=== PATIENT | female | born 1980 | race Caucasian/White ===

== ENCOUNTER → 2017-04-26 | Outpatient (CLI) | payer OTHER ==
[~2017-04-26] MED LIST: None per pt
[2017-04-26 15:24] LABS: HEMATOCRIT 32.8 % (34.6-47.8); HEMOGLOBIN 10.3 g/dL (11.7-16.4); WHITE BLOOD COUNT 6.6 x10^3/uL (3.4-10)
== END | disposition home or self-care (01) ==
LOC: STAR 14:26
PROVIDERS: ATTEND Obstetrics & Gynecology
DX: Z01.818 Encounter for other preprocedural examination (principal); N83.202 Unspecified ovarian cyst, left side; N85.8 Other specified noninflammatory disorders of uterus
CPT/HCPCS: 36415; 81003; 84702; 85025

== ENCOUNTER → 2018-08-06 | Outpatient (CLI) | payer OTHER | END | disposition home or self-care (01) | LOC: CFH 12:56 | PROVIDERS: ATTEND Nurse Practitioner Family | DX: S83.8X2A Sprain of other specified parts of left knee, initial encounter (principal); M25.462 Effusion, left knee; X58.XXXA Exposure to other specified factors, initial encounter; Y93.89 Activity, other specified; Y92.89 Other specified places as the place of occurrence of the external cause; Y99.8 Other external cause status ==

== ENCOUNTER 2018-08-14 09:53 | Day surgery (SDC) | payer OTHER ==
[~2018-08-14] VITALS: Ht 171.4 cm; Wt 65.2 kg
[~2018-08-14 09:53] MED LIST changes: +SUMA25TA3 PO
[2018-08-14 10:25] VITALS: BP 109/73
[2018-08-14] MEDS ORDERED: LACTATED RINGERS 1,000 ML IV SCH (10:28)
[2018-08-14] MEDS ORDERED: ACETAMINOPHEN 500 MG TABLET PO ONE (10:30)
[2018-08-14] MEDS ORDERED: GABAPENTIN 300 MG CAPSULE PO ONE (10:30)
[2018-08-14] MEDS ORDERED: DIAZEPAM 5 MG TABLET PO ONE (10:30)
[2018-08-14] MEDS ORDERED: SCOPOLAMINE PATCH, 1.5MG PATCH.TD72 TD ONE (10:30)
[2018-08-14] MEDS ORDERED: ONDANSETRON ODT 8 MG PO ONE (10:30)
[2018-08-14] MEDS ORDERED: MIDAZOLAM 1 MG/ML, 2ML ONE (10:36)
[2018-08-14] MEDS ORDERED: FENTANYL PF 250 MCG/5ML ONE (10:36)
[2018-08-14] MEDS ORDERED: BUPIVACAINE/PF 0.5% ONE (10:37)
[2018-08-14] MEDS ORDERED: LIDOCAINE 1%-EPI 1:100K, 30ML ONE (10:45)
[2018-08-14] MEDS ORDERED: ROPIvacaine/PF 0.5%, 30 ML ONE (10:45)
[2018-08-14] MEDS ORDERED: LIDOCAINE 2%, 6 ML JEL.PF.APP MM ONE (10:52)
[2018-08-14 10:57] LABS: HCG UR SG 1.024 (1.003-1.030)
[2018-08-14] MEDS ORDERED: CEFAZOLIN 1,000 MG ONE (11:27)
[2018-08-14] MEDS ORDERED: DEXAMETHASONE 4 MG/ML, 1ML ONE (11:27)
[2018-08-14] MEDS ORDERED: PROPOFOL 10 MG/ML, 20ML ONE (11:27)
[2018-08-14] MEDS ORDERED: KETOROLAC 30 MG/1 ML ONE (11:27)
[2018-08-14] MEDS ORDERED: PROMETHAZINE 25 MG/ML, 1ML IV PRN (12:30)
[2018-08-14] MEDS ORDERED: MIDAZOLAM 1 MG/ML, 2ML IV PRN (12:30)
[2018-08-14] MEDS ORDERED: ONDANSETRON 2MG/ML, 2ML IV PRN (12:30)
[2018-08-14] MEDS ORDERED: ALBUTEROL/IPRATROPIUM 2.5MG/0.5MG, 3 ML NPPB PRN (12:30)
[2018-08-14] MEDS ORDERED: hydrALAzine 20 MG/ML, 1ML IV PRN (12:30)
[2018-08-14] MEDS ORDERED: OXYcodone 5 MG/5 ML ORAL.SOL UDC PO PRN (12:30)
[2018-08-14] MEDS ORDERED: MEPERIDINE/PF 25MG/0.5ML IVPush PRN (12:30)
[2018-08-14] MEDS ORDERED: HYDROmorphone 2 MG/ML, 1ML IVPush PRN (12:30)
[2018-08-14] MEDS ORDERED: FENTANYL PF 100 MCG/2ML ONE (13:01)
[2018-08-14] MEDS ORDERED: OXYcodone 5 MG/5 ML ORAL.SOL UDC ONE (13:01)
[2018-08-14] MEDS ORDERED: MEPERIDINE/PF 25MG/ML,1ML ONE (13:01)
[2018-08-14] MEDS: FENTANYL PF 100 MCG/2ML IV PRN ×2 (13:13→13:30)
== END 2018-08-14 15:35 | disposition home or self-care (01) ==
LOC: OUT 09:53
PROVIDERS: ATTEND Orthopaedic Surgery
DX: S83.115A Anterior dislocation of proximal end of tibia, left knee, initial encounter (principal); F41.9 Anxiety disorder, unspecified; X58.XXXA Exposure to other specified factors, initial encounter; Y93.89 Activity, other specified; Y92.89 Other specified places as the place of occurrence of the external cause; Y99.8 Other external cause status
CPT/HCPCS: 29851; 64447; 81025; C1713; C1769; J0690; J1100; J1885; J2175; J2250; J2704; J2795; J3010; J3490; J7120; Q0162

== ENCOUNTER 2020-06-18 16:08 | Emergency (ER) | payer OTHER ==
[2020-06-18] MEDS ORDERED: SODIUM CHLORIDE FLUSH 10ML SYR IVF ONE (18:00)
[2020-06-18 18:19] LABS: ANION GAP 4 mmol/L (5-15); BASOPHILS % (AUTO) 1 % (0-1); CALCIUM 8.6 mg/dL (8.5-10.1); CHLORIDE 110 mmol/L (98-107); CREATININE 0.69 mg/dL (0.55-1.02); EOSINOPHILS % (AUTO) 1 % (1-7); LYMPHOCYTES % (AUTO) 26 % (22-44); MEAN CORPUSCULAR HEMOGLOBIN 25.1 pg (27.0-34.8); MEAN PLATELET VOLUME 8.4 fL (7.4-10.4); MONOCYTES % (AUTO) 7 % (2-9); NEUTROPHILS % (AUTO) 65 % (42-75); PLATELET COUNT 315 x10^3/uL (130-400); RED BLOOD COUNT 4.29 x10^6/uL (3.82-5.3); RED CELL DISTRIBUTION WIDTH 15.8 % (9.6-15.2)
[2020-06-18 18:20] LABS: ALBUMIN 3.4 g/dL (3.4-5.0)
[2020-06-18 18:23] LABS: MICROSCOPIC AUTO
[2020-06-18 18:24] LABS: MD NO
[2020-06-18 18:25] LABS: ALANINE AMINOTRANSFERASE 20 U/L (12-78); ALKALINE PHOSPHATASE 54 U/L (45-117); BILIRUBIN,TOTAL 0.1 mg/dL (0.2-1.0); TOTAL PROTEIN 6.9 g/dL (6.4-8.2)
[2020-06-18] MEDS ORDERED: OMNIPAQUE 350 MG/ML, 100ML BOTTLE ONE ×2 (18:39→18:40)
[2020-06-18 18:48] LABS: % IRON SATURATION 5 % (20-55); IRON LEVEL 17 mcg/dL (50-170); TOTAL IRON BINDING CAPACITY 324 mcg/dL (250-450)
--- NOTE | 2020-06-18 19:33 | NUR ---
TASK RN: DC EDUCATION PROVIDED, PT DEMONSTRATES UNDERSTANDING. DENIES NEED FOR PAIN/NAUSEA MEDICATIONS. PT AMBULATED STEADILY TO DC WITH RN
[2020-06-18 19:35] VITALS: BP 113/50
== END 2020-06-18 19:37 | disposition home or self-care (01) ==
LOC: ED 17:43
DX: N83.202 Unspecified ovarian cyst, left side (principal); N83.201 Unspecified ovarian cyst, right side; D50.8 Other iron deficiency anemias; R10.31 Right lower quadrant pain
CPT/HCPCS: 36415; 74177; 80053; 81001; 83540; 83550; 83690; 84703; 85025; 99285; Q9967